=== PATIENT | female | born 1965 | race Hispanic/Latino ===

== ENCOUNTER 2022-08-19 16:13 | Observation (INO) | payer SELFPAY ==
[~2022-08-19] VITALS: Ht 167.6 cm; Wt 94.8 kg
[2022-08-19] MEDS ORDERED: ASPIRIN 81 MG CHEW TAB PO ONE (16:45)
[2022-08-19 19:30] LABS: BASOPHILS # (AUTO) 0.1 (0.0-0.1); BASOPHILS % 0.6 % (0.0-1.0); EOSINOPHILS # (AUTO) 0.1 (0.0-0.4); EOSINOPHILS % 1.1 % (0.0-6.0); HEMATOCRIT 44.3 % (34.2-44.1); HEMOGLOBIN 13.8 g/dL (12.0-16.0); LYMPHOCYTES # (AUTO) 2.7 (1.0-3.2); MEAN CORPUSCULAR HEMOGLOBIN 30.6 pg (28-32); MEAN CORPUSCULAR HGB CONC 31.2 g/dL (31-35); MEAN CORPUSCULAR VOLUME 98.2 fL (81-99); MONOCYTES # (AUTO) 0.7 (0.2-0.8); MONOCYTES % 7.4 % (4.4-11.3); NEUTROPHILS % 62.6 % (38.7-80.0); PLATELET COUNT 339 x10e3/uL (140-360); RED BLOOD COUNT 4.51 x10e6/uL (3.6-5.1); RED CELL DISTRIBUTION WIDTH 12.5 % (11.7-14.4)
[2022-08-19 19:52] LABS: ALBUMIN 3.8 g/dL (3.5-5.0); ALBUMIN/GLOBULIN RATIO 0.8 (0.8-2.0); ANION GAP 14.4 mmol/L (8-16); CALCIUM 9.5 mg/dL (8.4-10.2); CREATININE, SERUM 0.74 mg/dL (0.57-1.11); POTASSIUM 3.4 mmol/L (3.5-5.1)
[2022-08-19 20:00] LABS: CREATINE KINASE MB 1.9 ng/mL (0-5.0)
[2022-08-19] MEDS ORDERED: ONDANSETRON HCL INJ 2MG/ML 2ML 2 MG/ML VIAL IV PRN (20:30)
[2022-08-19] MEDS ORDERED: IOPAMIDOL 370 MG/ML 100 ML INFUS..BTL INJ ONE (21:01)
[2022-08-19 23:26] VITALS: BP 128/70
[2022-08-19 23:29] VITALS: BP 128/70
[2022-08-19 23:37] VITALS: BP 128/70
[2022-08-19] MEDS ORDERED: LEVOTHYROXINE75 MCG PO (23:43)
[2022-08-20] MEDS ORDERED: SODIUM CHLORIDE 0.9% 250ML 250 ML ONE (00:11)
[2022-08-20] MEDS ORDERED: [UNRECOGNIZED DRUG - OTHER] (00:19)
[2022-08-20] MEDS ORDERED: AZITHROMYCIN250 MG PO (00:19)
[2022-08-20 00:43] VITALS: BP 128/70
[2022-08-20 05:29] LABS: CREATINE KINASE MB 1.4 ng/mL (0-5.0)
[2022-08-20 05:40] VITALS: BP 91/60
[2022-08-20 06:06] LABS: INR 0.94; PROTHROMBIN TIME 12.8 seconds (11.9-14.5)
[2022-08-20 06:07] LABS: PARTIAL THROMBOPLASTIN TIME 28.4 seconds (23.8-35.5)
[2022-08-20 08:00] VITALS: BP 116/67
[2022-08-20 08:07] VITALS: BP 116/67
[2022-08-20] MEDS ORDERED: BENZONATATE 100 MG CAP PO PRN (08:45)
[2022-08-20] MEDS ORDERED: GUAIFENESIN/DEXTROMETHORPHAN LIQD 5 ML UDC NG PRN (08:45)
[2022-08-20] MEDS ORDERED: LEVOTHYROXINE SODIUM 75 MCG TAB PO SCH (09:00)
[2022-08-20] MEDS ORDERED: ASPIRIN 325 MG TAB EC PO SCH (09:00)
[2022-08-20] MEDS ORDERED: LORATADINE 10 MG TAB PO SCH (09:00)
[2022-08-20] MEDS ORDERED: Benzonatate PO (09:48)
[2022-08-20] MEDS ORDERED: ASPIRIN81 MG PO (09:48)
[2022-08-20] MEDS ORDERED: CEPHALEXIN500 MG PO (09:48)
[2022-08-20] MEDS ORDERED: DOXYCYCLINE HY100 MG PO (09:48)
[2022-08-20] MEDS ORDERED: LORATADINE10 MG PO (09:48)
[2022-08-20 10:42] LABS: THYROID STIMULATING HORMONE 3.649 uIU/mL (0.350-4.940)
[2022-08-20 11:38] VITALS: BP 111/76
[2022-08-20 15:09] LABS: CREATINE KINASE MB 1.3 ng/mL (0-5.0)
[2022-08-20] MEDS ORDERED: FAMOTIDINE 20 MG TAB PO SCH (16:30)
[2022-08-20] MEDS ORDERED: ENOXAPARIN SOD INJ 40 MG/0.4 ML SYR SC SCH (17:00)
== END 2022-08-20 16:00 | disposition home or self-care (01) ==
LOC: ER 16:33 → ERHOLD 20:10 → MED/SURG 23:32
PROVIDERS: ADMIT Internal Medicine; ATTEND Internal Medicine
DX: R07.89 Other chest pain (principal); J18.9 Pneumonia, unspecified organism; E87.6 Hypokalemia; E66.09 Other obesity due to excess calories; Z68.33 Body mass index [BMI] 33.0-33.9, adult; Z20.822 Contact with and (suspected) exposure to COVID-19
CPT/HCPCS: 36415; 71045; 71260; 80053; 80061; 82550 ×2; 82553 ×2; 83735; 84132; 84443; 84484 ×2; 85025; 85379; 85610; 85730; 87040; 93005; 93017; 93306; 94799; 99284; G0378 ×2; J0456; J0696; J7050; Q9967; U0002

== ENCOUNTER 2023-01-18 02:59 | Emergency (ER) | payer SELFPAY ==
[~2023-01-18] VITALS: Ht 167.6 cm; Wt 94.8 kg
[~2023-01-18 02:59] MED LIST: ASPIRIN81 MG PO; AZITHROMYCIN250 MG PO; Benzonatate PO; CEPHALEXIN500 MG PO; DOXYCYCLINE HY100 MG PO; LEVOTHYROXINE75 MCG PO; LORATADINE10 MG PO; [UNRECOGNIZED DRUG - OTHER]
[2023-01-18 03:30] LABS: BASOPHILS # (AUTO) 0.1 (0.0-0.1); BASOPHILS % 1.3 % (0.0-1.0); EOSINOPHILS # (AUTO) 0.1 (0.0-0.4); EOSINOPHILS % 1.3 % (0.0-6.0); HEMATOCRIT 39.9 % (34.2-44.1); HEMOGLOBIN 13.5 g/dL (12.0-16.0); LYMPHOCYTES # (AUTO) 1.3 (1.0-3.2); LYMPHOCYTES % 14.5 % (18.0-39.1); MEAN CORPUSCULAR HEMOGLOBIN 30.9 pg (28-32); MEAN CORPUSCULAR HGB CONC 33.8 g/dL (31-35); MEAN CORPUSCULAR VOLUME 91.3 fL (81-99); MONOCYTES # (AUTO) 0.4 (0.2-0.8); MONOCYTES % 4.5 % (4.4-11.3); NEUTROPHILS # (AUTO) 7.1 (2.1-6.9); NEUTROPHILS % 78.2 % (38.7-80.0); PLATELET COUNT 347 x10e3/uL (140-360); RED BLOOD COUNT 4.37 x10e6/uL (3.6-5.1); RED CELL DISTRIBUTION WIDTH 12.7 % (11.7-14.4)
[2023-01-18 03:47] LABS: ALANINE AMINOTRANSFERASE 21 IU/L (0-55); ALBUMIN 3.7 g/dL (3.5-5.0); ALBUMIN/GLOBULIN RATIO 0.9 (0.8-2.0); ANION GAP 15.4 mmol/L (8-16); BLOOD UREA NITROGEN 12 mg/dL (7-26); BUN/CREATININE RATIO 15 (6-25); CALCIUM 9.4 mg/dL (8.4-10.2); CARBON DIOXIDE 21 mmol/L (22-29); CHLORIDE 106 mmol/L (98-107); CREATINE KINASE 116 IU/L (29-168); CREATININE, SERUM 0.79 mg/dL (0.57-1.11); GLUCOSE 155 mg/dL (74-118); POTASSIUM 3.4 mmol/L (3.5-5.1); SODIUM 139 mmol/L (136-145)
[2023-01-18 04:04] LABS: AMPHETAMINES SCREEN,URINE NEGATIVE (NEGATIVE); BENZODIAZEPINES SCREEN,URINE NEGATIVE (NEGATIVE); PHENCYCLIDINE SCREEN,URINE NEGATIVE (NEGATIVE)
[2023-01-18 04:09] LABS: ALKALINE PHOSPHATASE 93 IU/L (40-150)
[2023-01-18] MEDS ORDERED: VENTOLIN HFA18 GM INH (04:09)
[2023-01-18] MEDS ORDERED: PREDNISONE20 MG PO (04:09)
[2023-01-18 04:18] VITALS: O2SAT 98
== END 2023-01-18 04:27 | disposition home or self-care (01) ==
LOC: ER 03:09
DX: J06.9 Acute upper respiratory infection, unspecified (principal); R05.9 Cough, unspecified; Z88.1 Allergy status to other antibiotic agents; I10 Essential (primary) hypertension; E03.9 Hypothyroidism, unspecified; R00.0 Tachycardia, unspecified; Z79.890 Hormone replacement therapy; Z79.899 Other long term (current) drug therapy
CPT/HCPCS: 36415; 71045; 80053; 80307; 82550; 83690; 83880; 84484; 85025; 93005; 99284